=== PATIENT | female | born 1990 | race Asian ===

== ENCOUNTER 2022-06-20 15:18 | Emergency (ER) | payer MEDICAID ==
[~2022-06-20] VITALS: Ht 162.6 cm; Wt 53.0 kg
[2022-06-20] MEDS ORDERED: SODIUM CHLORIDE 0.9% 1,000 ML IV ONE (16:00)
[2022-06-20 16:28] LABS: CHLORIDE 104 mEq/L (98-107)
[2022-06-20 16:29] LABS: BASOPHILS % 0.3 % (0.0-2.0); EOSINOPHILS % 0.9 % (0.0-5.0); HEMATOCRIT. 40.7 % (36.0-48.0); HEMOGLOBIN. 13.7 g/dL (12.0-16.0); MEAN CORPUSCULAR HEMOGLOBIN 30.6 pg (28.0-32.0); MEAN CORPUSCULAR VOLUME 90.8 fL (81.0-99.0); MEAN PLATELET VOLUME 7.6 fl (7.4-10.4); MONOCYTES % 5.4 % (2.0-8.0); NEUTROPHILS % 79.4 % (40.0-76.0); PLATELET 230 x1000/uL (130-400); RED BLOOD CELL COUNT 4.48 mill/uL (4.2-5.4); RED CELL DISTRIBUTION WIDTH 13.8 % (11.6-14.6)
[2022-06-20 18:45] VITALS: BP 113/70
== END 2022-06-20 18:48 | disposition home or self-care (01) ==
LOC: ER 15:35
DX: R55 Syncope and collapse (principal); R42 Dizziness and giddiness
CPT/HCPCS: 36415; 70450; 71045; 80053; 81025; 85025; 96360; 96361; 99285; J7030; Z7610; A4315